=== PATIENT | female | born 1990 | race Caucasian/White ===

== ENCOUNTER → 2018-07-23 | Outpatient (REF) | payer OTHER | LOC: M SFHCLERA 10:40 | PROVIDERS: ATTEND Nurse Practitioner Family | DX: R53.81 Other malaise (principal) ==

== ENCOUNTER 2018-09-13 18:19 | Emergency (ER) | payer OTHER, SELFPAY ==
[~2018-09-13] VITALS: Ht 162.6 cm; Wt 84.1 kg
[2018-09-13] MEDS ORDERED: SULF1TAB93 PO (18:33)
[2018-09-13] MEDS ORDERED: BUPR1SUB35 PO (18:33)
[2018-09-13 19:36] LABS: BASO % 0.6 % (0.0-1.0); EOS # 0.2 10^3/uL (0.0-0.50); EOS % 2.8 % (0.0-3.0); HEMATOCRIT 41.3 % (36.0-47.0); LYMPH # 2.4 10^3/uL (1.5-6.5); LYMPH % 33.4 % (24.0-44.0); MEAN CORPUSCULAR HEMOGLOBIN 29.2 pg (27.0-33.0); MEAN CORPUSCULAR HGB CONC 33.9 g/dl (32.0-36.5); MEAN CORPUSCULAR VOLUME 86.2 fl (80.0-96.0); MONO # 0.5 10^3/uL (0.0-0.8); MONO % 6.3 % (0.0-5.0); NEUTROPHILS % 56.6 % (36.0-66.0); PLATELET COUNT, AUTOMATED 249 10^3/uL (150-450); RED BLOOD COUNT 4.79 10^6/uL (4.00-5.40); WHITE BLOOD COUNT 7.1 10^3/uL (4.0-10.0)
[2018-09-13 20:33] LABS: HCG, SERUM QUALITATIVE POSITIVE (NEGATIVE)
[2018-09-13 20:39] LABS: HCG, SERUM QUANTITATIVE 16 MIU/ML
[2018-09-13 21:51] VITALS: BP 138/78
== END 2018-09-13 21:52 | disposition home or self-care (01) ==
LOC: M ED 18:19
DX: Z32.01 Encounter for pregnancy test, result positive (principal); N93.9 Abnormal uterine and vaginal bleeding, unspecified; I10 Essential (primary) hypertension; N80.9 Endometriosis, unspecified; E28.2 Polycystic ovarian syndrome; M54.9 Dorsalgia, unspecified; N13.70 Vesicoureteral-reflux, unspecified; M51.9 Unspecified thoracic, thoracolumbar and lumbosacral intervertebral disc disorder; Z79.899 Other long term (current) drug therapy; Z88.1 Allergy status to other antibiotic agents; Z88.8 Allergy status to other drugs, medicaments and biological substances; F17.210 Nicotine dependence, cigarettes, uncomplicated

== ENCOUNTER → 2018-11-28 | Outpatient (CLI) | payer OTHER, SELFPAY ==
[~2018-11-28] MED LIST: BUPR1SUB35 PO; SULF1TAB93 PO
[2018-11-28 15:43] LABS: ALBUMIN 3.3 GM/DL (3.2-5.2); BILIRUBIN,DIRECT 0.1 MG/DL (0.0-0.2); BILIRUBIN,TOTAL 0.3 MG/DL (0.2-1.0); TOTAL PROTEIN 7.3 GM/DL (6.4-8.2)
[2018-12-01 14:07] LABS: HEPATITIS C QUANTITATION 753890 IU/mL (.)
== END ==
LOC: M LAB 14:06
PROVIDERS: ATTEND Obstetrics & Gynecology
DX: B19.20 Unspecified viral hepatitis C without hepatic coma (principal)

== ENCOUNTER 2019-01-22 15:30 | Outpatient (CLI) | payer OTHER, SELFPAY ==
[~2019-01-22] VITALS: Ht 162.6 cm; Wt 81.7 kg
[2019-01-22] MEDS ORDERED: PRENTAB9 PO (16:02)
[2019-01-22] MEDS ORDERED: MAPA500T2 PO (16:02)
[2019-01-22] MEDS ORDERED: BUPR8SUB SL (16:02)
[2019-01-22] MEDS ORDERED: TUMS500C PO (16:02)
[2019-01-22] MEDS ORDERED: TUMS750C5 PO (16:02)
[2019-01-22 16:08] VITALS: BP 115/59
[2019-01-22] MEDS ORDERED: LR 500 ML IV ONE (16:30)
[2019-01-22] MEDS ORDERED: ONDANSETRON 4MG/2ML VIAL (J2405) IV ONE (16:45)
[2019-01-22] MEDS ORDERED: LR 500 ML IV SCH (17:00)
[2019-01-22] MEDS ORDERED: LR 1,000 ML IV SCH (17:00)
[2019-01-22 17:13] LABS: APPEARANCE, URINE HAZY (CLEAR); BACTERIA, URINE AUTO NEGATIVE (NEGATIVE); BILIRUBIN, URINE AUTO NEGATIVE (NEGATIVE); BLOOD, URINE BLOOD NEGATIVE (NEGATIVE); COLOR, URINE AMBER (YELLOW); GLUCOSE, URINE (UA) AUTO NEGATIVE (NEGATIVE); KETONE, URINE AUTO 1+ mg/dL (NEGATIVE); LEUKOCYTE ESTERASE, URINE AUTO NEGATIVE (NEGATIVE); MUCUS, URINE SMALL (NEGATIVE); NITRITE, URINE AUTO NEGATIVE (NEGATIVE); PROTEIN, URINE AUTO NEGATIVE (NEGATIVE); RBC, URINE AUTO 2 /HPF (0-3); SPECIFIC GRAVITY URINE AUTO 1.024 (1.002-1.035); SQUAMOUS EPITHELIAL CELL UR AU 10 /HPF (0-6); WBC, URINE AUTO 1 /HPF (0-3)
[2019-01-22 17:17] LABS: ALBUMIN 2.8 GM/DL (3.2-5.2); ALT/SGPT 319 U/L (12-78); BILIRUBIN,TOTAL 0.4 MG/DL (0.2-1.0); BLOOD UREA NITROGEN 7 MG/DL (7-18); CALCIUM LEVEL 8.6 MG/DL (8.5-10.1); CARBON DIOXIDE LEVEL 22 MEQ/L (21-32); CHLORIDE LEVEL 107 MEQ/L (98-107); CREATININE FOR GFR 0.41 MG/DL (0.55-1.30); GLOMERULAR FILTRATION RATE > 60.0 (>60); GLUCOSE, FASTING 73 MG/DL (70-100); POTASSIUM SERUM 3.5 MEQ/L (3.5-5.1); SODIUM LEVEL 138 MEQ/L (136-145); TOTAL PROTEIN 6.6 GM/DL (6.4-8.2)
[2019-01-22] MEDS ORDERED: REGL10TA6 PO (18:08)
[2019-01-22 18:15] LABS: INR 1.04; PARTIAL THROMBOPLASTIN TIME 30.3 SECONDS (25.0-38.4); PROTHROMBIN TIME 13.3 SECONDS (11.8-14.0)
--- NOTE | 2019-01-22 20:23 | IPNPDOC ---
Text Note Date of Service The patient was seen on 01/22/19. NOTE OB Considerations: - Hep C - Followed by ID - Subutex usage - h/o section - prior back surgeries - BMI 30 - Asthma Mary is a 28yo at 22+2wks by 11wk US (DIANE [id number]) presents with 24hrs of nausea and vomiting. She reports that it started yesterday after ea ting. She notes that her room mate was sick recently but with different symptoms. She reports that she had n/v all night, but felt slightly better during the morning today. Then, this afternoon, she notes that she would vomit only with liquids and she was concerned also because her baby was not as active. She reports a fever of 102, for which she took Tylenol with resolution of fever. She reports history of duodenitis, gastritis, and hiatal hernia, as well as history of Lap Aditi, Kidney issues. VS: reviewed, normotensive, afebrile, nontachycardic GEN: WNWD, NAD CV: nontachycardic RESP: breathing normally ABD: Soft, Gravid, mildly TTP epigastric, mildly TTP right costovertebral tender ness EXT: no edema FHR: 140sbpm Limited bedside Ultrasound: single intrauterine , lots of movement noted, +FCA, grossly adequate fluid, posterior placenta A/P: SIUP at 22wks with n/v - labs notable for elevated AST/ALT which has been noted in the past due to Hep C. Likely viral gastroenteritis. She has follow up with ID in . Urine notable for elevated specific gravity likely due to dehydration. Do not suspect worsening Hep C or Pyelo. She was PO challenged and reports feeling much better after IVF and Zofran, desiring discharge. Reglan ordered for her due to Zofran PO made her more nausea. She was give strict return and PTL precautions and was discharged home. She to follow up in clinic as scheduled. DO BETSY Eaton Fishbone, I+O Robert MEYER, I+O Laboratory Tests 01/22/19 16:32 Calcium Level 8.6, Aspartate Amino Transf (AST/SGOT) 202 H, Alanine Aminotransferase (ALT/SGPT) 319 H, Alkaline Phosphatase 96, Total Bilirubin 0.4, Total Protein 6.6, Albumin 2.8 L Vital Signs Date Time Temp Pulse Resp B/P (MAP) Pulse Ox O2 Delivery O2 Flow Rate FiO2 01/22/19 16:08 97.8 86 16 115/59 (77) JAKE MARTINO DO Jan 22, 2019 19:03
== END 2019-01-22 18:28 | disposition home or self-care (01) ==
LOC: M LDO 15:30
PROVIDERS: ATTEND Obstetrics & Gynecology
DX: O36.8130 Decreased fetal movements, third trimester, not applicable or unspecified (principal); O99.283 Endocrine, nutritional and metabolic diseases complicating pregnancy, third trimester; E86.0 Dehydration; Z3A.37 37 weeks gestation of pregnancy
CPT/HCPCS: 36415; 76815; 80053; 81001; 85384; 85610; 85730; 87086; 96374; G0378; G0463; J2405

== ENCOUNTER 2019-02-06 14:34 | Outpatient (CLI) | payer OTHER, SELFPAY ==
[~2019-02-06] VITALS: Ht 162.6 cm; Wt 80.4 kg
[2019-02-06] VITALS (16 sets, daily range): BP systolic 118–206; BP diastolic 60–158
[~2019-02-06 14:34] MED LIST changes: -ZOFR4TAB16 PO
[2019-02-06] MEDS ORDERED: ZOFR4TAB16 PO (14:48)
[2019-02-06 15:37] LABS: HEMATOCRIT 32.9 % (36.0-47.0); HEMOGLOBIN 11.3 g/dl (12.0-15.5); MEAN CORPUSCULAR HEMOGLOBIN 30.1 pg (27.0-33.0); MEAN CORPUSCULAR HGB CONC 34.3 g/dl (32.0-36.5); MEAN CORPUSCULAR VOLUME 87.5 fl (80.0-96.0); PLATELET COUNT, AUTOMATED 263 10^3/uL (150-450); RED BLOOD COUNT 3.76 10^6/uL (4.00-5.40); WHITE BLOOD COUNT 10.5 10^3/uL (4.0-10.0)
[2019-02-06 16:05] LABS: ALBUMIN 2.9 GM/DL (3.2-5.2); ALT/SGPT 27 U/L (12-78); BILIRUBIN,TOTAL 0.3 MG/DL (0.2-1.0); BLOOD UREA NITROGEN 7 MG/DL (7-18); CALCIUM LEVEL 8.4 MG/DL (8.5-10.1); CARBON DIOXIDE LEVEL 21 MEQ/L (21-32); CHLORIDE LEVEL 108 MEQ/L (98-107); CREATININE FOR GFR 0.53 MG/DL (0.55-1.30); GLOMERULAR FILTRATION RATE > 60.0 (>60); GLUCOSE, FASTING 85 MG/DL (70-100); POTASSIUM SERUM 3.6 MEQ/L (3.5-5.1); SODIUM LEVEL 137 MEQ/L (136-145); TOTAL PROTEIN 7.3 GM/DL (6.4-8.2)
[2019-02-06 16:13] LABS: TOTAL PROTEIN,RANDOM URINE 36.7 MG/DL (0.0-12.0)
[2019-02-06] MEDS ORDERED: FAMOTIDINE 20 MG TAB PO ONE (16:30)
[2019-02-06] MEDS ORDERED: PROMETHAZINE 25 MG TAB PO ONE (16:30)
--- NOTE | 2019-02-06 17:36 | REP ---
Abdominal right upper quadrant ultrasound for right upper quadrant pain, question of hepatic hematoma. Additionally, the patient has a history of hepatitis C and is with a gestational age of 24 weeks. The the patient has a cholecystectomy. There is no intrahepatic or extrahepatic biliary duct dilatation. The common biliary duct measures 4.9 mm in diameter. The hepatic parenchyma is homogeneous. There is no hepatic hematoma or laceration. There are no hepatic masses. The visualized areas of the pancreas are unremarkable. The right kidney is normal size measuring 10.0 x 5.4 x 4.5 cm. There are no right renal calculi. There is no hydronephrosis. There are no right renal solid or cystic masses. There is no right upper quadrant free fluid. During the examination the heart rate was recorded to be 149 beats per minute. Impression: There is no hepatic hematoma. There is no hepatic mass. There is no right upper quadrant free fluid. Cholecystectomy. No right renal hydronephrosis. Electronically Signed by Donovan Hagen MD 02/06/2019 05:28 P
[2019-02-06] MEDS ORDERED: NORCO, ANEXSIA 5/325MG TABLET (HYDROcodone/ACETAMINOPHEN) PO ONE (18:30)
--- NOTE | 2019-02-06 20:21 | ECGEPIP ---
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
--- NOTE | 2019-02-06 20:55 | IPNPDOC ---
Text Note Date of Service The patient was seen on 02/06/19. NOTE I accepted care of this patient and co-managed with MAJ Salvador CNM OB Considerations: - Hep C - Followed by ID - Subutex usage - h/o section - prior back surgeries - BMI 30 - Asthma Mary is a 28yo at 25+3wks by 11wk US (DIANE [id number]) presents from clinic for evaluation of elevated BPs and N/V epigastric pain that has been present for 2 weeks. She was evaluated by MAJ Franco - seen note for more details. VS: reviewed GEN: WNWD, NAD CV: RRR no m/g/r RESP: CTAB ABD: Soft, Gravid, TTP epigastric, no peritoneal signs +NABS EXT: No edema, neg veena's A/P: SIUP at 25wks with the above complaint. No Pre Eclampsia symptoms, no labs abnormalities with normal Spot. Normal RUQ ultrasound. It was noted after several elevated heart rates on monitor with normal HR to palpation, manual blood pressures were performed and were found to be in the normotensive range. Unsure if automatic BPs/HR were accurate. An EKG was performed with no concerns for acute concerns, normal sinus rhythm, without acute ST-T wave changes. [place] 5/325mg x1 and Protonix with decrease in pain from 7 to 4/10 and no n/v during evaluation of patient. Recommend a MRCP to look at biliary system. Patient was unhappy that the evaluation was taking so long. I discussed that we wanted to make sure we were no life threatening or conditions that needed inpatient treatments or other consultations. She stated that she needed to leave, as her is watching her son and he needed to go to work. I discussed that I would be happy to call his command to let them know what was going on and that her spouse was need to watch her son. She declines this and would like to leave against medical advice. I counseled her on risk of worsening condition, maternal or , she verbalized understanding, signed AMA. She did eat prior to discharge. I will order the MRCP as outpatient and gave her strict return precautions. Phenergan and Omeprazole to be ordered to her outpatient pharmacy: [facility]. Recommend that she follow up in clinic in 1 weeks or sooner if symptoms worsen. Kenzie Martino DO VS,Robert, I+O VS, Robert, I+O Laboratory Tests 02/06/19 15:24 Red Blood Count 3.76 L, Mean Corpuscular Volume 87.5, Mean Corpuscular Hemoglobin 30.1, Mean Corpuscular Hemoglobin Concent 34.3, Red Cell Distribution Width 13.6, Calcium Level 8.4 L, Aspartate Amino Transf (AST/SGOT) 21, Alanine Aminotransferase (ALT/SGPT) 27, Alkaline Phosphatase 68, Total Bilirubin 0.3, Total Protein 7.3, Albumin 2.9 L Vital Signs Date Time Temp Pulse Resp B/P (MAP) Pulse Ox O2 Delivery O2 Flow Rate FiO2 02/06/19 18:40 66 16 126/78 (94) 100 02/06/19 18:00 98.4 KENZIE MARTINO DO Feb 06, 2019 20:55
[2019-02-06] MEDS ORDERED: PANTOPRAZOLE 40MG INJ (PROTONIX) (C9113) IV SCH (21:00)
[2019-04-24] MEDS ORDERED: XANA0.5T PO (14:00)
[2019-04-24] MEDS ORDERED: BUPR2SUB PO (14:00)
== END 2019-02-06 20:30 | disposition home or self-care (01) ==
LOC: M LDO 14:34
PROVIDERS: ATTEND Advanced Practice Midwife
DX: O26.892 Other specified pregnancy related conditions, second trimester (principal); R03.0 Elevated blood-pressure reading, without diagnosis of hypertension; O21.2 Late vomiting of pregnancy; R10.13 Epigastric pain; O98.412 Viral hepatitis complicating pregnancy, second trimester; B18.2 Chronic viral hepatitis C; Z3A.25 25 weeks gestation of pregnancy
CPT/HCPCS: 36415; 59025; 76705; 80053; 82570; 84156; 85027; 86704; 86706; 86708; 87522; 87902; 93005; C9113; G0378; G0463

== ENCOUNTER → 2019-02-06 | Outpatient (REF) | payer OTHER ==
[~2019-02-06] MED LIST changes: +BUPR8SUB SL; +MAPA500T2 PO; +PRENTAB9 PO; +REGL10TA6 PO; +TUMS500C PO; +TUMS750C5 PO; +ZOFR4TAB16 PO
[2019-02-06 18:40] LABS: ALT/SGPT 27 U/L (12-78); BILIRUBIN,DIRECT 0.1 MG/DL (0.0-0.2); BILIRUBIN,TOTAL 0.3 MG/DL (0.2-1.0)
[2019-02-08 09:28] LABS: HEPATITIS B SURFACE ANTIBODY NEGATIVE (POSITIVE)
== END ==
LOC: M LAB REF 16:59
PROVIDERS: ATTEND Internal Medicine Infectious Disease
DX: B18.2 Chronic viral hepatitis C (principal)

== ENCOUNTER → 2019-02-16 | Outpatient (CLI) | payer OTHER, SELFPAY ==
[~2019-02-16] MED LIST changes: +BUPR2SUB PO; +OMEP40CA97 PO; +PROM50TA4 PO; +PROT20TA11 PO; +XANA0.5T PO; +ZOFR4TAB16 PO
--- NOTE | 2019-02-17 10:34 | REP ---
MRCP: MRCP exam is accomplished utilizing multiple heavily T2-weighted sequences in the axial and coronal planes with MIP reconstruction images. Correlation made with ultrasound 02/06/2019. Patient has had a prior cholecystectomy. There is no evidence of intrahepatic or extrahepatic biliary diltation. Common bile duct has a maximum diameter of 4 mm. There is no evidence of choledocholithiasis. Pancreatic duct is normal in caliber. Visualized portions of liver, spleen, adrenals, pancreas, and kidneys are unremarkable. Gravid uterus is noted in the pelvis. IMPRESSION: Status post cholecystectomy. No biliary diltation or evidence of choledocholithiasis. Electronically Signed by Donovan Estes MD 02/20/2019 02:47 P
== END ==
LOC: M RAD 16:54
PROVIDERS: ATTEND Obstetrics & Gynecology
DX: O26.892 Other specified pregnancy related conditions, second trimester (principal); R10.11 Right upper quadrant pain; Z90.49 Acquired absence of other specified parts of digestive tract; Z3A.25 25 weeks gestation of pregnancy

== ENCOUNTER 2019-03-13 17:36 | Outpatient (CLI) | payer OTHER, SELFPAY ==
[~2019-03-13] VITALS: Ht 162.6 cm; Wt 81.5 kg
[~2019-03-13 17:36] MED LIST changes: -BUPR2SUB PO; -OMEP40CA97 PO; -PROM50TA4 PO; -PROT20TA11 PO; -XANA0.5T PO
[2019-03-13 17:54] VITALS: BP 148/96
[2019-03-13] MEDS ORDERED: METOCLOPRAMIDE 10 MG TAB PO ONE (18:15)
[2019-03-13] MEDS ORDERED: ACETAMINOPHEN 500 MG TAB PO ONE (18:15)
[2019-03-13 18:53] LABS: ALT/SGPT 33 U/L (12-78); BILIRUBIN,TOTAL 0.3 MG/DL (0.2-1.0); CREATININE FOR GFR 0.51 MG/DL (0.55-1.30); GLOMERULAR FILTRATION RATE > 60.0 (>60); LDH LACTATE DEHYDROGENASE 207 U/L (84-246); URIC ACID 2.5 MG/DL (2.6-6.0)
[2019-03-13 19:00] LABS: HEMATOCRIT 33.4 % (36.0-47.0); HEMOGLOBIN 11.3 g/dl (12.0-15.5); MEAN CORPUSCULAR HEMOGLOBIN 30.4 pg (27.0-33.0); MEAN CORPUSCULAR HGB CONC 33.8 g/dl (32.0-36.5); MEAN CORPUSCULAR VOLUME 89.8 fl (80.0-96.0); PLATELET COUNT, AUTOMATED 268 10^3/uL (150-450); RED BLOOD COUNT 3.72 10^6/uL (4.00-5.40); WHITE BLOOD COUNT 10.7 10^3/uL (4.0-10.0)
[2019-03-13 19:04] LABS: TOTAL PROTEIN,RANDOM URINE 16.5 MG/DL (0.0-12.0)
[2019-03-13 19:09] LABS: APPEARANCE, URINE CLEAR (CLEAR); BACTERIA, URINE AUTO NEGATIVE (NEGATIVE); BILIRUBIN, URINE AUTO NEGATIVE (NEGATIVE); BLOOD, URINE BLOOD NEGATIVE (NEGATIVE); COLOR, URINE YELLOW (YELLOW); GLUCOSE, URINE (UA) AUTO NEGATIVE (NEGATIVE); KETONE, URINE AUTO 1+ mg/dL (NEGATIVE); LEUKOCYTE ESTERASE, URINE AUTO NEGATIVE (NEGATIVE); MUCUS, URINE SMALL (NEGATIVE); NITRITE, URINE AUTO NEGATIVE (NEGATIVE); PROTEIN, URINE AUTO NEGATIVE (NEGATIVE); RBC, URINE AUTO 0 /HPF (0-3); SPECIFIC GRAVITY URINE AUTO 1.015 (1.002-1.035); SQUAMOUS EPITHELIAL CELL UR AU 1 /HPF (0-6); UROBILINOGEN, URINE AUTO 0.2 mg/dL (0.0-2.0); WBC, URINE AUTO 1 /HPF (0-3)
--- NOTE | 2019-03-13 20:08 | IPNPDOC ---
Text Note Date of Service The patient was seen on 03/13/19. NOTE patient is a 28 yo @30+3wks gestation presents to l&d with concern for pelvic pressure and intermittent lower abdominal cramping x 2 days. Patient reports she has been up on her feet busy for the last few days. She thinks she is drinking enough water. report she feels her abdomen tighten occasionally. denies n/v. has had YOO x 2 days. She tried tylenol yesterday and that did not help. YOO is mild and she is able to sleep. YOO back of head and behind her right eye. denies blurred vision. denies LOF/VB. +FM. Vitals: 148/96 NAD cta s w/r/r s1s2 s m/g/c abd: gravid, soft, nt le: no edema/erythema/tenderness speculum exam: white vaginal discharge. cervix visually closed CE: closed/long/high, posterior, medium fht: 135/mod almita/pos accel/no decel toco: uterine irritability wet prep: neg clue cells/trich omari: neg buds/hyphae Laboratory Tests 2 03/13/19 18:11: Urine Color YELLOW, Urine Appearance CLEAR, Urine pH 7.0, Urine Specific [place] 1.015, Urine Protein NEGATIVE, Urine Glucose (Auto)(UA) NEGATIVE, Urine Ketones (Auto) 1+H, Urine Blood NEGATIVE, Urine Nitrite NEGATIVE, Urine Bilirubin NEGATIVE, Urine Urobilinogen 0.2, Urine Leukocyte Esterase (Auto) NEGATIVE, Urine WBC (Auto) 1, Urine RBC (Auto) 0, Urine Hyaline Casts (Auto) 0, Urine Bacteria (Auto) NEGATIVE, Urine Squamous Epithelial Cells 1, Urine Mucus (Auto) SMALL, Urine Sperm (Auto) , Urine Random Creatinine 145.0, Urine Random Total Protein 16.5H 03/13/19 18:14: Nucleated Red Blood Cells % (auto) 0.0, Glomerular Filtration Rate > 60.0, Uric Acid 2.5L, Total Bilirubin 0.3, Aspartate Amino Transf (AST/SGOT) 32, Alanine Aminotransferase (ALT/SGPT) 33, Lactate Dehydrogenase 207 Laboratory Tests Test 03/13/19 18:14 Total Bilirubin 0.3 MG/DL (0.2-1.0) Laboratory Tests 03/13/19 18:14 a/p Patient @ 30+3wks, with irregular contractions, cervix closed, not in labor at this time. YOO improves with acetaminophen and reglan. patient with GHTN, no e/o pre-eclampsia. discussed return precautions. f/u with regularly scheduled appointment. back sooner prn. VS,Fishbone, I+O VS, Fishbone, I+O Laboratory Tests 03/13/19 18:14 Vital Signs Date Time Temp Pulse Resp B/P (MAP) Pulse Ox O2 Delivery O2 Flow Rate FiO2 03/13/19 17:54 97.5 91 16 148/96 (113) PATIENCE WHITE DO Mar 13, 2019 19:15
[2019-04-24] MEDS ORDERED: XANA0.5T PO (14:00)
[2019-04-24] MEDS ORDERED: BUPR2SUB PO (14:00)
== END 2019-03-13 20:10 | disposition home or self-care (01) ==
LOC: M LDO 17:36
PROVIDERS: ATTEND Obstetrics & Gynecology
DX: O13.3 Gestational [pregnancy-induced] hypertension without significant proteinuria, third trimester (principal); Z3A.30 30 weeks gestation of pregnancy
CPT/HCPCS: 36415; 59025; 81001; 82247; 82565; 82570; 83615; 84156; 84450; 84460; 84550; 85027; 87086; G0378; G0463

== ENCOUNTER 2019-03-31 10:13 | Outpatient (CLI) | payer OTHER, SELFPAY ==
[~2019-03-31] VITALS: Ht 162.6 cm; Wt 79.0 kg
[2019-03-31] MEDS ORDERED: PROT20TA11 PO (10:38)
[2019-03-31] MEDS ORDERED: PROM50TA4 PO (10:42)
[2019-03-31] MEDS ORDERED: OMEP40CA97 PO (10:42)
[2019-03-31 10:43] VITALS: BP 124/76
[2019-03-31 11:10] VITALS: BP 222/135
[2019-03-31 11:13] LABS: HEMATOCRIT 33.8 % (36.0-47.0); HEMOGLOBIN 11.1 g/dl (12.0-15.5); MEAN CORPUSCULAR HEMOGLOBIN 29.5 pg (27.0-33.0); MEAN CORPUSCULAR HGB CONC 32.8 g/dl (32.0-36.5); MEAN CORPUSCULAR VOLUME 89.9 fl (80.0-96.0); PLATELET COUNT, AUTOMATED 235 10^3/uL (150-450); RED BLOOD COUNT 3.76 10^6/uL (4.00-5.40)
[2019-03-31 11:14] VITALS: BP 110/62
[2019-03-31 11:18] VITALS: BP 179/112
[2019-03-31 11:19] VITALS: BP 110/58
[2019-03-31 11:23] VITALS: BP 110/60
[2019-03-31 11:35] LABS: ALT/SGPT 20 U/L (12-78); BILIRUBIN,TOTAL 0.3 MG/DL (0.2-1.0); CREATININE FOR GFR 0.45 MG/DL (0.55-1.30); GLOMERULAR FILTRATION RATE > 60.0 (>60); LDH LACTATE DEHYDROGENASE 160 U/L (84-246); URIC ACID 2.5 MG/DL (2.6-6.0)
[2019-03-31 12:25] LABS: AMPHETAMINES URINE REFLEX NEGATIVE (NEGATIVE); BARBITURATES URINE REFLEX NEGATIVE (NEGATIVE); BENZODIAZEPINES URINE REFLEX NEGATIVE (NEGATIVE); COCAINE METABOLITE URINE REFLE NEGATIVE (NEGATIVE); METHADONE URINE REFLEX NEGATIVE (NEGATIVE); OPIATES URINE REFLEX NEGATIVE (NEGATIVE); PHENCYCLIDINE URINE REFLEX NEGATIVE (NEGATIVE)
[2019-03-31 12:29] LABS: CANNABINOIDS URINE REFLEX PENDING CONFIRMATION (NEGATIVE)
--- NOTE | 2019-03-31 15:22 | IPNPDOC ---
Text Note Date of Service The patient was seen on 03/31/19. NOTE Patient is a 28 yo @33wks gestation with GHTN presents to L&D for BP m onitoring. patient denies YOO/N/V/change in vision. denies cramping/vb. +FM. vitals: automatic BP in severe range while manual BP all normal NAD: cta s w/r/r s1s2 s m/g/c abd: gravid, soft,nt LE: no edema/erythema/tenderness fht: 145/mod almita/pos accel/no decel toco: quiet labs reviewed normal urine spot protein: 0.1 a/p patient @ 33 wks gestation with GHTN, normal (manual) BP today. no e/o pre- eclampsia. patient given return precautions. 24hr urine protein ordered and patient will bring collection back on wednesday. patient has f/u appointment in clinic next week. DO Bonita VS,Fishbone, I+O VS, Fishbone, I+O Laboratory Tests 03/31/19 11:03 Vital Signs Date Time Temp Pulse Resp B/P (MAP) Pulse Ox O2 Delivery O2 Flow Rate FiO2 03/31/19 11:23 110/60 (77) 03/31/19 11:18 104 03/31/19 10:43 98.8 18 VS,Fishbone, I+O VS, Fishbone, I+O Laboratory Tests 03/31/19 11:03 Vital Signs Date Time Temp Pulse Resp B/P (MAP) Pulse Ox O2 Delivery O2 Flow Rate FiO2 03/31/19 11:23 110/60 (77) 03/31/19 11:18 104 03/31/19 10:43 98.8 18 PATIENCE WHITE DO Mar 31, 2019 15:22
[2019-04-07 00:07] LABS: Cannabinoid Positive (.); GC Carboxy THC 250 ng/mL (Cutoff=10)
== END 2019-03-31 12:30 | disposition home or self-care (01) ==
LOC: M LDO 10:13
PROVIDERS: ATTEND Obstetrics & Gynecology
DX: O26.893 Other specified pregnancy related conditions, third trimester (principal); Z3A.33 33 weeks gestation of pregnancy
CPT/HCPCS: 36415; 59025; 80307; 82247; 82565; 82570; 83615; 84156; 84450; 84460; 84550; 85027; G0378; G0463; G0480

== ENCOUNTER → 2019-04-03 | Outpatient (REF) | payer OTHER ==
[~2019-04-03] MED LIST changes: +OMEP40CA97 PO; +PROM50TA4 PO; +PROT20TA11 PO
[2019-04-03 10:39] LABS: URINE TOTAL PROTEIN 23.1 MG/DL (0-12)
[2019-04-03 12:57] LABS: TOTAL PROTEIN 24 HOUR URINE 103.9 MG/24HR (50-150)
== END ==
LOC: M LAB REF 10:01
PROVIDERS: ATTEND Obstetrics & Gynecology
DX: O16.3 Unspecified maternal hypertension, third trimester (principal)

== ENCOUNTER 2019-04-14 22:45 | Outpatient (CLI) | payer OTHER ==
[~2019-04-14] VITALS: Ht 162.6 cm; Wt 79.8 kg
[2019-04-14 23:09] VITALS: BP 134/83
[2019-04-14] MEDS ORDERED: LR 1,000 ML IV ONE (23:45)
[2019-04-14] MEDS ORDERED: LR 1,000 ML IV SCH (23:45)
[2019-04-15 00:23] LABS: AMPHETAMINES URINE REFLEX NEGATIVE (NEGATIVE); BARBITURATES URINE REFLEX NEGATIVE (NEGATIVE); BENZODIAZEPINES URINE REFLEX NEGATIVE (NEGATIVE); COCAINE METABOLITE URINE REFLE NEGATIVE (NEGATIVE); METHADONE URINE REFLEX NEGATIVE (NEGATIVE); OPIATES URINE REFLEX NEGATIVE (NEGATIVE); PHENCYCLIDINE URINE REFLEX NEGATIVE (NEGATIVE)
[2019-04-15 05:09] LABS: CANNABINOIDS URINE REFLEX PENDING CONFIRMATION (NEGATIVE)
--- NOTE | 2019-04-15 08:53 | HPE ---
DATE OF ADMISSION: 04/14/2019 DATE OF SERVICE: 04/15/2019 This lady is a 28-year-old 3, para 1, abortio 1, last menstrual period (LMP) 08/12/2018, estimated date of confinement (EDC) 05/19/2019 at 35 and 2 weeks of gestation with a history of contractions. First, they were every 3 minutes. Then they were 11 minutes, and she had nausea and vomiting and then a fever. She called the emergency line three times over the last 24 hours but never came for evaluation. She called 04/14/2019 at noon. She called at 1634 p.m. and 1143 p.m. When she arrived, she had complains of nausea, vomiting, and a temperature. However, she was afebrile here. She said she had taken some Tylenol before coming, and her contractions were about 4 minutes apart. Her past history is that she had a spontaneous in 2017, a section at 39 and 5, 6 pounds 1 ounce. It was elective because of chronic back pain. She is booked for an elective repeat with Dr. White, although she is vacillating on trying a trial of labor after (TOLAC), and she says if there is a lot of back pain, she will request a section, and she is uncertain as to the mode of delivery at the present time. Risk factors, her body mass index (BMI) is 30, previous section, back injury with fusion of L1. She was a previous opioid addict, on buprenorphine. She is positive for cannabis. She has tobacco use, anxiety and depression, and she is hepatitis C positive. Laboratories are A+, HIV negative, hepatitis negative, rapid plasma reagin (RPR) negative, rubella immune, varicella immune. Pap normal. Urine negative. Gonorrhea and chlamydia negative. 1-hour glucose was 111. That was the early. She did not do her 28-week glucose tolerance test (GTT), and she is hepatitis C positive. Blood pressure today 134/83, respirations 16, pulse 108, temperature is 98.1. Urine is 1.015, pH 7, and 3+ for ketones. Category one strips. We do have a patient with significant dehydration. Our plan of management is to IV hydrate and eliminate the ketones, at which time the uterine irritability should resolve. The patient had two bags of intravenous (IV) fluid. Was feeling much better, although she still had positive ketones. We wanted to clear the ketones, however, the patient decided she wanted to go home and sign herself out as against medical advice (AMA). After counseling by the nurses regarding risk factors in signing oneself out as AMA, the patient adamantly left without discharge instructions. She does have a followup appointment Dr. White in 72 hours.
[2019-04-21 00:07] LABS: Cannabinoid Positive (.); GC Carboxy THC 40 ng/mL (Cutoff=10)
[2019-04-24] MEDS ORDERED: XANA0.5T PO (14:00)
[2019-04-24] MEDS ORDERED: BUPR2SUB PO (14:00)
== END 2019-04-15 02:35 | disposition left against medical advice (07) ==
LOC: M LDO 22:45
PROVIDERS: ATTEND Obstetrics & Gynecology
DX: O62.2 Other uterine inertia (principal); O21.2 Late vomiting of pregnancy; O99.89 Other specified diseases and conditions complicating pregnancy, childbirth and the puerperium; O99.323 Drug use complicating pregnancy, third trimester; F12.90 Cannabis use, unspecified, uncomplicated; O99.333 Smoking (tobacco) complicating pregnancy, third trimester; F17.210 Nicotine dependence, cigarettes, uncomplicated; O99.283 Endocrine, nutritional and metabolic diseases complicating pregnancy, third trimester; E86.0 Dehydration; O98.413 Viral hepatitis complicating pregnancy, third trimester; Z87.898 Personal history of other specified conditions; Z79.891 Long term (current) use of opiate analgesic; Z3A.35 35 weeks gestation of pregnancy; Z53.29 Procedure and treatment not carried out because of patient's decision for other reasons
CPT/HCPCS: 59025; 80307; 96360; G0378; G0463; G0480

== ENCOUNTER → 2019-05-13 | Outpatient (CLI) | payer OTHER ==
[~2019-05-13] MED LIST changes: +BUPR2SUB PO; +XANA0.5T PO
--- NOTE | 2019-05-13 18:02 | REP ---
Clinical: Chest pain . Comparison: None . Technique: PA and lateral. Findings: The mediastinum and cardiac silhouette are normal. The lung canales are clear and without acute consolidation, effusion, or pneumothorax. The skeletal structures are intact and normal. Impression: 1. No acute cardiopulmonary process. Electronically Signed by Jonathon Daley MD 05/13/2019 05:53 P
== END ==
LOC: M LRY 17:38
PROVIDERS: ATTEND Nurse Practitioner Family
DX: R06.2 Wheezing (principal)

== ENCOUNTER 2019-07-19 16:27 | Emergency (ER) | payer OTHER ==
[~2019-07-19] VITALS: Ht 162.6 cm; Wt 74.8 kg
[2019-07-19] MEDS ORDERED: LEXA1TAB PO (16:39)
[2019-07-19 17:13] LABS: BASO % 0.5 % (0.0-1.0); EOS # 0.1 10^3/uL (0.0-0.5); EOS % 1.5 % (0.0-3.0); HEMOGLOBIN 13.6 g/dl (12.0-15.5); LYMPH # 2.5 10^3/uL (1.5-5.0); LYMPH % 32.5 % (24.0-44.0); MEAN CORPUSCULAR HEMOGLOBIN 27.8 pg (27.0-33.0); MEAN CORPUSCULAR HGB CONC 32.4 g/dl (32.0-36.5); MEAN CORPUSCULAR VOLUME 85.7 fl (80.0-96.0); MONO # 0.5 10^3/uL (0.0-0.8); MONO % 5.9 % (0.0-5.0); NEUTROPHILS # 4.6 10^3/uL (1.5-8.5); NEUTROPHILS % 59.3 % (36.0-66.0); PLATELET COUNT, AUTOMATED 339 10^3/uL (150-450); WHITE BLOOD COUNT 7.8 10^3/uL (4.0-10.0)
[2019-07-19 17:35] LABS: BLOOD UREA NITROGEN 6 MG/DL (7-18); CALCIUM LEVEL 9.2 MG/DL (8.5-10.1); CARBON DIOXIDE LEVEL 28 MEQ/L (21-32); CHLORIDE LEVEL 105 MEQ/L (98-107); CREATININE FOR GFR 0.63 MG/DL (0.55-1.30); GLOMERULAR FILTRATION RATE > 60.0 (>60); GLUCOSE, FASTING 92 MG/DL (70-100); HCG, SERUM QUANTITATIVE < 1.0 MIU/ML; SODIUM LEVEL 138 MEQ/L (136-145)
[2019-07-19] MEDS ORDERED: ACETAMINOPHEN 325 MG TAB PO ONE (18:15)
[2019-07-19 18:27] VITALS: BP 117/68
== END 2019-07-19 18:52 | disposition home or self-care (01) ==
LOC: M ED 16:27
DX: N92.0 Excessive and frequent menstruation with regular cycle (principal); I10 Essential (primary) hypertension; J45.909 Unspecified asthma, uncomplicated; Z88.1 Allergy status to other antibiotic agents; Z88.5 Allergy status to narcotic agent; Z88.6 Allergy status to analgesic agent; Z88.8 Allergy status to other drugs, medicaments and biological substances; Z79.899 Other long term (current) drug therapy

== ENCOUNTER 2019-10-18 12:14 | Emergency (ER) | payer OTHER ==
[~2019-10-18] VITALS: Ht 162.6 cm; Wt 70.5 kg
[~2019-10-18 12:14] MED LIST changes: +LEXA1TAB PO
[2019-10-18] MEDS ORDERED: PREN29TA4 PO (12:21)
[2019-10-18 13:16] LABS: BASO % 0.3 % (0.0-1.0); EOS # 0.1 10^3/uL (0.0-0.5); EOS % 1.6 % (0.0-3.0); HEMATOCRIT 39.5 % (36.0-47.0); HEMOGLOBIN 13.2 g/dl (12.0-15.5); LYMPH # 1.6 10^3/uL (1.5-5.0); LYMPH % 23.1 % (24.0-44.0); MEAN CORPUSCULAR HEMOGLOBIN 28.4 pg (27.0-33.0); MEAN CORPUSCULAR HGB CONC 33.4 g/dl (32.0-36.5); MEAN CORPUSCULAR VOLUME 85.1 fl (80.0-96.0); MONO # 0.4 10^3/uL (0.0-0.8); MONO % 5.8 % (0.0-5.0); NEUTROPHILS # 4.8 10^3/uL (1.5-8.5); NEUTROPHILS % 69.1 % (36.0-66.0); PLATELET COUNT, AUTOMATED 234 10^3/uL (150-450); RED BLOOD COUNT 4.64 10^6/uL (4.00-5.40); WHITE BLOOD COUNT 6.9 10^3/uL (4.0-10.0)
[2019-10-18 13:22] LABS: APPEARANCE, URINE HAZY (CLEAR); BACTERIA, URINE AUTO NEGATIVE (NEGATIVE); BILIRUBIN, URINE AUTO NEGATIVE (NEGATIVE); BLOOD, URINE BLOOD NEGATIVE (NEGATIVE); COLOR, URINE YELLOW (YELLOW); GLUCOSE, URINE (UA) AUTO NEGATIVE (NEGATIVE); KETONE, URINE AUTO NEGATIVE (NEGATIVE); LEUKOCYTE ESTERASE, URINE AUTO NEGATIVE (NEGATIVE); NITRITE, URINE AUTO NEGATIVE (NEGATIVE); PROTEIN, URINE AUTO NEGATIVE (NEGATIVE); RBC, URINE AUTO 1 /HPF (0-3); SPECIFIC GRAVITY URINE AUTO 1.021 (1.002-1.035); SQUAMOUS EPITHELIAL CELL UR AU 1 /HPF (0-6); UROBILINOGEN, URINE AUTO 0.2 mg/dL (0.0-2.0); WBC, URINE AUTO 0 /HPF (0-3)
[2019-10-18 13:56] LABS: ALBUMIN 3.5 GM/DL (3.2-5.2); ALT/SGPT 25 U/L (12-78); BILIRUBIN,DIRECT < 0.1 MG/DL (0.0-0.2); BILIRUBIN,TOTAL 0.3 MG/DL (0.2-1.0); BLOOD UREA NITROGEN 8 MG/DL (7-18); CALCIUM LEVEL 8.6 MG/DL (8.5-10.1); CARBON DIOXIDE LEVEL 22 MEQ/L (21-32); CHLORIDE LEVEL 106 MEQ/L (98-107); GLOMERULAR FILTRATION RATE > 60.0 (>60); GLUCOSE, FASTING 85 MG/DL (70-100); HCG, SERUM QUANTITATIVE 34333 MIU/ML; LIPASE 96 U/L (73-393); POTASSIUM SERUM 3.9 MEQ/L (3.5-5.1); SODIUM LEVEL 137 MEQ/L (136-145); TOTAL PROTEIN 7.8 GM/DL (6.4-8.2)
--- NOTE | 2019-10-18 15:24 | REP ---
FIRST TRIMESTER ULTRASOUND: Real-time sonographic evaluation of gravid uterus performed. There is a single living intrauterine gestation. The estimated gestational age is 12 weeks 3 days, based on a crown-rump length of 58 mm. EDC 04/28/2020. heart rate 149 beats per minute. There is no subchorionic hemorrhage. Placenta is anterior with no previa. There appears to be a corpus luteum of the left ovary, 1.4 cm in maximum diameter. There is no ovarian torsion bilaterally. Electronically Signed by Donovan Estes MD 10/19/2019 07:14 P
--- NOTE | 2019-10-18 15:30 | REP ---
RIGHT LOWER QUADRANT ULTRASOUND: Real-time sonographic evaluation of the right lower quadrant performed. The appendix could not be visualized. There is no pain or tenderness in that region with transducer pressure. No free fluid or fluid collection is seen. There is peristalsis of small bowel in this region. IMPRESSION: Appendix could not be visualized. No free fluid or fluid collection. Electronically Signed by Donovan Estes MD 10/19/2019 07:14 P
[2019-10-18 15:35] VITALS: BP 117/57
== END 2019-10-18 15:38 | disposition home or self-care (01) ==
LOC: M ED 12:14
DX: O26.891 Other specified pregnancy related conditions, first trimester (principal); R10.9 Unspecified abdominal pain; O21.0 Mild hyperemesis gravidarum; Z87.42 Personal history of other diseases of the female genital tract; O99.331 Smoking (tobacco) complicating pregnancy, first trimester; Z79.899 Other long term (current) drug therapy; Z88.5 Allergy status to narcotic agent; Z88.8 Allergy status to other drugs, medicaments and biological substances; Z3A.12 12 weeks gestation of pregnancy

== ENCOUNTER 2019-11-03 | Emergency (ER) | payer OTHER ==
[~2019-11-03] VITALS: Ht 162.6 cm; Wt 81.0 kg
[~2019-11-03] MED LIST changes: +PREN29TA4 PO
[2019-11-03 00:01] VITALS: BP 118/91
[2019-11-03] MEDS ORDERED: LIDOCAINE W/EPINEPHRINE 1% 20ML VIAL SC ONE (02:00)
== END 2019-11-03 02:46 | disposition left against medical advice (07) ==
LOC: M ED
DX: Z53.21 Procedure and treatment not carried out due to patient leaving prior to being seen by health care provider (principal)

== ENCOUNTER 2020-02-28 08:29 | Outpatient (CLI) | payer OTHER ==
[~2020-02-28] VITALS: Ht 162.6 cm; Wt 89.2 kg
[2020-02-28 08:44] VITALS: BP 114/58
[2020-02-28] MEDS ORDERED: FERR325T3 PO (09:04)
[2020-02-28] MEDS ORDERED: MAPA500T2 PO (09:04)
[2020-02-28] MEDS ORDERED: VITA100T59 PO (09:05)
[2020-02-28 10:17] VITALS: BP 97/54
--- NOTE | 2020-02-28 10:48 | REPVR ---
PROCEDURE INFORMATION: Exam: US , Limited Exam date and time: 02/28/2020 10:14 AM Age: 29 years old Clinical indication: Other: Vaginal bleeding; ; Additional info: Vaginal bleeding, R/O abruption, adams, and bpp TECHNIQUE: Imaging protocol: Real-time ultrasound of the maternal uterus with image documentation. Exam focused on the clinical indication. COMPARISON: Pelvis, limited US 10/18/2019 2:28 PM FINDINGS: Gestation: Single living intrauterine . heart rate: heart rate 133 bpm. Presentation: Cephalic position. Placenta: Anterior placenta. Grade 2. No previa. No abruption. Amniotic fluid: Normal amniotic fluid. ADAMS 12 cm. Other findings: Normal cord Doppler. S/D ratio 2.77. RI 0.64. IMPRESSION: 1. Single living intrauterine . 2. Anterior grade 2 placenta. No previa. No abruption. 3. Biophysical profile reported below. PROCEDURE INFORMATION: Exam: US Biophysical Profile Without Non-Stress Test Exam date and time: 02/28/2020 10:14 AM Age: 29 years old Clinical indication: Other: Vaginal bleeding; ; Additional info: Vaginal bleeding, R/O abruption, adams, and bpp TECHNIQUE: Imaging protocol: US biophysical profile without non-stress testing. COMPARISON: Pelvis, limited US 10/18/2019 2:28 PM FINDINGS: BIOPHYSICAL PROFILE: Breathin/2 Gross body movements: 2/2 tone: 2/2 Qualitative amniotic fluid: 2/2 Biophysical Profile Score: 8/8 IMPRESSION: Biophysical profile score is 8 out of 8. Electronically signed by: Jonathon Levin On 02/28/2020 10:48:35 AM
[2020-02-28 10:59] VITALS: BP 104/56
--- NOTE | 2020-02-28 11:14 | IPNPDOC ---
Obstetrical Progress Note Date of Service Feb 28, 2020 Subjective 29 y/o at 33w0d with DIANE of 04/17/2020 presents to L&D with complaints of bright red bleeding since waking this morning at 0800. She reports that her she noticed bright red blood on her pantyliner and when she presented to L&D she had on a pad with dark colored old blood that was about 3 quarter size. She denies any recent intercourse. She denies any abdominal trauma, fall, cont ractions, leaking of fluid, and reports positive movement. Objective Vital Signs Date Time Temp Pulse Resp B/P (MAP) Pulse Ox O2 Delivery O2 Flow Rate FiO2 02/28/20 08:44 98.4 88 18 114/58 (76) Sterile speculum exam with no blood and no active bleeding noted from the vaginal vault or coming from the cervix. Cervix appears closed by speculum exam. Assessment Heart Rate (FHR): 135 Variability: Moderate Accelerations: Present Decelerations: None Heart Rate Tracing: Category I Tocometer Contractions: No Assessment and Plan Age: 29 : 4 Term: 2 Pre-term: 0 Abortions: 1 Livin EGA at Admission: 33 (+0) Weeks & Days 33w0d Status: Reassuring Anticipate: Other (Discharge to home, certified not in labor) Additional Comments Recommended to keep appointment in the clinic today at 1240. Reviewed normal and reassuring US results with patient. Continue to hydrate well with 3-4 liters of fluid Discussed labor precautions. Return to clinic or to L&D if symptoms persist or worsen. MADHURI PARSONS CNM Feb 28, 2020 11:01
== END 2020-02-28 11:10 | disposition home or self-care (01) ==
LOC: M LDO 08:29
PROVIDERS: ATTEND Registered Nurse Maternal Newborn
DX: O26.853 Spotting complicating pregnancy, third trimester (principal); Z3A.33 33 weeks gestation of pregnancy
CPT/HCPCS: 59025; 76815; 76819; 76820; G0378; G0463

== ENCOUNTER → 2020-12-17 | Outpatient (CLI) | payer OTHER ==
[~2020-12-17] MED LIST changes: +ACET-683 PO; +BACTDSTA PO; +FERR325T3 PO; +IBUP80TA PO; +OMEP40CA4 PO; -OMEP40CA97 PO; +PROZ20CA11 PO; +SUBO8MIS SL; -SULF1TAB93 PO; +VITA100T59 PO
== END ==
LOC: M RAD 11:23
PROVIDERS: ATTEND Obstetrics & Gynecology
DX: Z36.89 Encounter for other specified antenatal screening (principal); Z3A.21 21 weeks gestation of pregnancy

== ENCOUNTER 2021-02-07 10:05 | Inpatient (IN) | payer OTHER ==
[2021-02-07] VITALS (8 sets, daily range): BP systolic 92–125; BP diastolic 51–65
[~2021-02-07] VITALS: Ht 162.6 cm; Wt 88.1 kg
[~2021-02-07 10:05] MED LIST changes: -ACET-683 PO; -IBUP80TA PO; -PROZ20CA11 PO; -SUBO8MIS SL
[2021-02-07] MEDS ORDERED: ACETAMINOPHEN 500 MG TAB PO ONE (10:35)
[2021-02-07] MEDS ORDERED: PROZ20CA11 PO (10:46)
[2021-02-07] MEDS ORDERED: SUBO8MIS SL (10:46)
[2021-02-07] MEDS ORDERED: LACTATED RINGER'S 1000 ML IV STA (11:05)
[2021-02-07 11:53] LABS: AMORPHOUS SEDIMENT SMALL (NEGATIVE); APPEARANCE, URINE HAZY (CLEAR); BACTERIA, URINE AUTO NEGATIVE (NEGATIVE); BILIRUBIN, URINE AUTO NEGATIVE (NEGATIVE); BLOOD, URINE BLOOD 3+ (NEGATIVE); COLOR, URINE AMBER (YELLOW); GLUCOSE, URINE (UA) AUTO NEGATIVE (NEGATIVE); KETONE, URINE AUTO TRACE mg/dL (NEGATIVE); LEUKOCYTE ESTERASE, URINE AUTO NEGATIVE (NEGATIVE); MUCUS, URINE SMALL (NEGATIVE); NITRITE, URINE AUTO NEGATIVE (NEGATIVE); PROTEIN, URINE AUTO 2+ mg/dL (NEGATIVE); RBC, URINE AUTO 20 /HPF (0-3); SPECIFIC GRAVITY URINE AUTO 1.021 (1.002-1.035); SQUAMOUS EPITHELIAL CELL UR AU 4 /HPF (0-6); WBC, URINE AUTO 5 /HPF (0-3)
[2021-02-07 12:06] LABS: HEMATOCRIT 31.4 % (36.0-47.0); MEAN CORPUSCULAR HEMOGLOBIN 27.2 pg (27.0-33.0); MEAN CORPUSCULAR HGB CONC 31.8 g/dl (32.0-36.5); MEAN CORPUSCULAR VOLUME 85.3 fl (80.0-96.0); PLATELET COUNT, AUTOMATED 311 10^3/uL (150-450); RED BLOOD COUNT 3.68 10^6/uL (4.00-5.40); WHITE BLOOD COUNT 8.9 10^3/uL (4.0-10.0)
[2021-02-07 12:12] LABS: AMPHETAMINES URINE REFLEX NEGATIVE (NEGATIVE); BARBITURATES URINE REFLEX NEGATIVE (NEGATIVE); BENZODIAZEPINES URINE REFLEX NEGATIVE (NEGATIVE); COCAINE METABOLITE URINE REFLE NEGATIVE (NEGATIVE); METHADONE URINE REFLEX NEGATIVE (NEGATIVE); OPIATES URINE REFLEX NEGATIVE (NEGATIVE); PHENCYCLIDINE URINE REFLEX NEGATIVE (NEGATIVE)
[2021-02-07 12:17] LABS: INR 0.96; PROTHROMBIN TIME 13.1 SECONDS (12.7-14.5)
[2021-02-07 12:18] LABS: PARTIAL THROMBOPLASTIN TIME 28.9 SECONDS (25.9-37.0)
[2021-02-07] MEDS ORDERED: OXYTOCIN DRIP 30 UNITS in IV 1 EA IV PRN (12:20)
[2021-02-07] MEDS ORDERED: LR 1,000 ML IV SCH ×2 (12:20→13:55)
[2021-02-07] MEDS ORDERED: METHYLERGONOVINE MALEATE 0.2 MG/ML VIAL (J2210) IM PRN (12:20)
[2021-02-07] MEDS ORDERED: BICITRA 30ML SOLN UDC PO ONE (12:20)
[2021-02-07] MEDS ORDERED: TRANEXAMIC ACID INJection 1,000 MG in NS 100 ML IV PRN (12:20)
[2021-02-07] MEDS ORDERED: CLINDAMYCIN 900 MG in IV 1 EA IV ONE ×2 (12:25→12:45)
[2021-02-07] MEDS ORDERED: SUCCINYLCHOLINE 100 MG/5 ML SYRINGE (J0330) ONE (12:48)
[2021-02-07] MEDS ORDERED: MIDAZOLAM INJ 2MG/2ML VIAL (J2250 PER 1MG) ONE (12:48)
[2021-02-07] MEDS ORDERED: LIDOCAINE 2% 100MG/5ML SDV (FOR ANES.) ONE (12:48)
[2021-02-07] MEDS ORDERED: fentaNYL 100 MCG/2 ML INJECTION (J3010) ONE (12:48)
[2021-02-07] MEDS ORDERED: ACETAMINOPHEN 1000MG 100ML IV BTL (OFIRMEV) (J0131 PER 10MG) ONE (12:48)
[2021-02-07] MEDS ORDERED: propofoL 200 MG/20 ML VIAL ONE (12:48)
[2021-02-07] MEDS ORDERED: OXYTOCIN INJ 10 UNITS/ML VIAL (J2590) ONE (12:52)
[2021-02-07] MEDS ORDERED: KETOROLAC 60MG 2ML VIAL ONE (12:54)
[2021-02-07 12:58] LABS: CANNABINOIDS URINE REFLEX PENDING CONFIRMATION (NEGATIVE)
[2021-02-07] MEDS ORDERED: GENTAMICIN 400 MG in D5W 100 ML IV ONE ×2 (13:00→14:05)
[2021-02-07] MEDS ORDERED: BETAMETHASONE SOLUSPAN 6MG/ML 5ML VIAL (J0702 PER 3MG) IM SCH (13:00)
[2021-02-07] MEDS ORDERED: OXYTOCIN 30 UNITS IN 0.9% NaCl 500ML IV BAG (J2590) ONE ×2 (13:02→13:56)
[2021-02-07] MEDS ORDERED: PHENYLephrine 500MCG 5ML (100MCG/ML) SYRINGE ONE (13:02)
[2021-02-07 13:09] LABS: CORD GAS ABE V -1.5; CORD GAS HCO3 V 24.3 MEQ/L; CORD GAS O2 SAT V 89.9 %; CORD GAS PCO2 V 44.5 mmHg; CORD GAS PH V 7.355 UNITS; CORD GAS PO2 V 43.5 mmHg; CORD GAS SBC V 23.1 MEQ/L; CORD GAS TCO2 V 25.7 MEQ/L
[2021-02-07 13:10] LABS: CORD GAS ABE A -1.5; CORD GAS HCO3 A 26.4 MEQ/L; CORD GAS O2 SAT A 51.8 %; CORD GAS PCO2 A 57.2 mmHg; CORD GAS PH A 7.282 UNITS; CORD GAS PO2 A 22.5 mmHg; CORD GAS TCO2 A 28.2 MEQ/L
--- NOTE | 2021-02-07 13:12 | REP ---
INDICATION: NO COUNT STAT C/S. COMPARISON: None. FINDINGS: Only the lower abdomen and pelvis was obtained. No abnormal radiopaque densities are identified. IMPRESSION: As above <Electronically signed by Reji Barnes > 02/07/21 [id number]
--- NOTE | 2021-02-07 13:14 | REP ---
INDICATION: Severe Abdominal pain with vaginal bleeding, hx C/S x3. COMPARISON: Comparison obstetric sonography December 17, 2020. TECHNIQUE: Portably obtained limited Ob sonography. Transabdominal. FINDINGS: Scanning through the gravid uterus demonstrates a viable single intrauterine gestation in transverse lie. motion is observed and heart rate is recorded at 158 beats per minute. A anterior placenta is seen, grade 1, without evidence of placenta previa. The maternal bladder and cervix could not be identified. There appears to be a defect in the midline in the lower uterine segment with intact amniotic sac and extremities protruding through the defect. Intact appearing myometrium is seen to the right and left of midline. The defect is approximately 4 cm. No extrauterine abnormality is observed. Amniotic fluid is subjectively normal. Biometry chart: BPD 7.7 cm, 31 weeks 0 days Head circumference 27.3 cm, 29 weeks 6 days Abdominal circumference 25.8 cm, 30 weeks 0 days Femur length 5.2 cm, cyst 27 weeks 5 days HC AC ratio normal 1.06 Cephalic index normal 0.80 Estimated weight 1369 g, 3 lb 0 oz, 64th percentile for 28 weeks 4 days IMPRESSION: Viable single intrauterine gestation at 29 weeks 4 days by today's composite sonographic criteria. DIANE by today's sonography 21 April 2021. No complication identified There is evidence of a defect in the lower uterine segment anteriorly in the midline with protruding amniotic sac and extremities.. Expected gestational age estimate based on 1st sonography 28 weeks 4 days, DIANE by for 1st sonography 04/28/2021. <Electronically signed by Jt Christy > 02/07/21 [id number]
--- NOTE | 2021-02-07 13:38 | POST-OPPD ---
Postoperative Procedure Note Date Of Procedure: Feb 07, 2021 DATE OF PROCEDURE: 02/07/21 PREPROCEDURE DIAGNOSES: uterine dehiscence POSTPROCEDURE DIAGNOSES: uterine dehiscence, status post emergent repeat low transverse delivery. PROCEDURE PERFORMED: emergent repeat low transverse delivery SURGEON: Angus Stevenson DO SENIOR PROCUREMENT SPECIALIST: Sebastian Obrien MD SENIOR PROCUREMENT SPECIALIST: Odilia Oconnell CNM ANESTHESIA: general. ESTIMATED BLOOD LOSS: Approximately 300 mL. COMPLICATIONS: none. FINDINGS: live male in breech position, apgars 5/8; SPECIMENS REMOVED: placenta, arterial and venous blood gases DESCRIPTION OF PROCEDURE: After obtaining informed consent, the patient was taken to the OR in emergent fashion due to heart rate deceleration to the 50's and sonographic evidence of uterine dehiscence. Once in the OR, the patient was placed under general anesthesia and the skin prepped with betadine splash. The surgical drapes were placed and an incision was made over the previous uterine scar and carried down through the fascia to the rectus muscles. These were in the midline and the amniotic sac was visible. The amniotic sac was ruptured with an Allis clamp and clear fluid was noted. The legs were delivered followed by the corpus and arms. The head was flexed and gently delivered. The cord was clamped and cut, the was handed to the NICU team. Arterial and venous blood gases were then obtained. The placenta was then delivered intact. The interior of the uterus was wiped with a laparotomy sponge. The uterine incision was closed with running locking 0-vicryl in one layer. Hemostasis was noted. The fascia was then approximated with 0-vicryl in a running fashion. The subcutaneous layer was irrigated and closed with 3-0 vicryl. 4-0 monocryl was used to close the skin. An Optifoam dressing was placed. The patient was awakened from anesthesia and taken to the recovery room in good condition. DO CONCHITA Hoffman BRADLEY J. DO Feb 07, 2021 13:38
[2021-02-07] MEDS ORDERED: SIMETHICONE 80MG CHEW TAB PO PRN (13:40)
[2021-02-07] MEDS ORDERED: RHOGAM 300 MCG (1500 IU) INJ (J2790) IM SCH (13:40)
[2021-02-07] MEDS ORDERED: METHYLERGONOVINE MALEATE 0.2 MG TAB PO PRN (13:40)
[2021-02-07] MEDS ORDERED: MEASLES,MUMPS,RUBELLA VACCINE INJ (MMR-II) (90707) SC SCH (13:40)
[2021-02-07] MEDS ORDERED: DOCUSATE SODIUM 100MG CAPSULE PO PRN (13:40)
[2021-02-07] MEDS ORDERED: OXYTOCIN DRIP 30 UNITS in IV 1 EA IV SCH ×4 (13:40)
[2021-02-07 13:45] LABS: GC DNA AMPLIFICATION NEGATIVE (NEGATIVE)
[2021-02-07] MEDS ORDERED: oxyCODONE 5MG TAB PO PRN ×2 (13:55→14:15)
[2021-02-07] MEDS ORDERED: ONDANSETRON 4MG/2ML VIAL IV PRN (13:55)
[2021-02-07] MEDS ORDERED: fentaNYL 100 MCG/2 ML INJECTION (J3010) IV PRN ×2 (13:55→14:15)
--- NOTE | 2021-02-07 14:07 | IPNPDOC ---
Text Note Date of Service The patient was seen on 02/07/21. NOTE Chief Complaint: Ms. Rodriguez is a 30 year old at 28+4 weeks gestation presenting to L&D triage by ambulance for complaints of pain since 0400 this am. Patient presents: with friend HPI: Reports low abdominal constant pain, feeling like "chainsaw" that changes to sharp pain when sitting up. Pain does not radiate anywhere. Pain started at 0400 this am and woke her from sleeping. Has not tried heat or tylenol for pain relief. Takes Suboxone, Prozac and PNV. Able to still drink water, last ate food last night. Emesis this am with pain. Denies dysuria, vaginal itching, burning, or changes in discharge. No recent intercourse. Denies vaginal bleeding. Thinks she may be [place]. Has decreased movement today. Denies LOF. ROS: GEN: Denies fevers, chills, or night sweats. Head: Denies Headaches, facial pain, or sinus pressure. Eyes: Denies change in vision/ scotomata/blurred vision. ENT: Denies sore throat. Resp: Denies SOB/BORGES, cough, or wheezing. Card: Denies palpitations or Chest pain. GI: Denies diarrhea, constipation, heartburn. Lymph: Reports edema to upper or lower extremities bilaterally. Started occurring at 18 weeks . Skin: Denies any skin changes. Reports scabs from frequent picking. ALLERGIES: NKeflex, Gabapentin, Codeine, Cipro, zolft Objective: VS: 109/55, P97, T98.1, POX 98% room air General: Alert. Well-appearing. Tearful and rocking with pain. PSYCH: Well groomed. Appropriate affect. Conversed easily. Neuro: Oriented to time, place, and person. RESP: Lungs clear to auscultation bilaterally without wheezes, rales or rhonchi. Unlabored breathing. CV: Normal RRR, no murmur, c/w normal . ABD: Soft. Tenderness diffusely to abdomen, more pain to lower right and left quadrants with most pain to lower left and low mid abdomen. Tenderness on rebound to lower right and left, but reports pain worse with direct palpation. BS normal and auscultated to upper quadrants. Minimal fundal tenderness noted on palpation. No swelling, guarding, mass or lumps noted on palpation. MSK: 1+ pitting edema lower extremities bilaterally up to shins. Non-pitting edema, mild to bilateral hands. Normal mvmt all extremities, however guarding with ambulation. Steady gait. Lila from a seated position with assistance due to pain. SKIN: Dry, with multiple and extensive healing in various stages scabs on bilateral upper and lower extremities. None noted on abdomen. Obstetrical: FHR: 135 with moderate variability and accelerations present 15x15. No decels noted. Minimal contracitons noted. No contractions palpated over 5 minutes. While patient up to bathroom to provide urine sample, nursing staff noted 8cm spot on underwear of bright red blood. Pelvic exam: External Genitalia showed no abnormalities, without lesions; normal vulva. Vagina: Noted pooling dark red blood est 5-10 min in posterior vaginal vault. Swabs for wet prep, GC/CT, GBS collected. Cervix appears 1cm dilated, no membranes visualized. No mehrdad bleeding noted. Minimal vaginal discharge was observed. Normal mucosa with good rugae. No ulcerations, masses, lesions or lacerations. No unusual odors. Patient with discomfort on speculum exam. SVE deferred at this time. Conditioning Room Worker present for exam: Kayy ALEJANDRE from L&D. Limited Trans-Abdominal Ultrasound Performed Today: Presentation: Breech with head to maternal left. Placenta location: anterior Movement Present Heart Rate Present Amniotic fluid: visually adequate. A/P: Ms. Rodriguez is a 30 year old at 28+4 weeks. Called to bedside initially due to difficulty of RN finding FHR at 1014. FHR noted by TAUS in RUQ due to breech presentation. Placenta was not evaluated on this US at this time. VSS and normal Wet prep with blood and minimal hyphe noted. No clue cells. IV LR bolus ordered. CBC, fibrinogen, PT/APTT, UA/UC, Genprobe/Trich, UDS, GBS, T&S, syphilis ordered. Physical exam significant for abdominal pain and vaginal bleeding. Upon discovery of the bleeding at 1050, stat bedside US ordered to evaluate placenta and incision site and being performed at 1115. Dr. Zaldivar notified of patient status at 1058. FHR continues to be reassuring during assessment. Nursing staff with difficulty obtaining IV access and labs to include abruption labs. Spec exam after initial US by radiology to assess location of bleeding and noted blood in vault, however membranes not visualized. Dr Ahuja at bedside at 1126. Reactive NST, reassuring. Report given to Dr. Ahuja for delivery plans. VS,Fishbone, I+O VS, Fishbone, I+O Laboratory Tests 02/07/21 11:46 Vital Signs Date Time Temp Pulse Resp B/P (MAP) Pulse Ox O2 Delivery O2 Flow Rate FiO2 02/07/21 10:19 98.1 97 18 109/55 (73) 98 Room Air DWAYNE SÁNCHEZ CNM Feb 07, 2021 13:49
[2021-02-07] MEDS: ONDANSETRON 4MG/2ML VIAL IV PRN ×2 (14:13→21:14)
--- NOTE | 2021-02-07 14:30 | HPEPDOC ---
Obstetrical History & Physical General Date of Admission Feb 07, 2021 at 12:20 History of Present Illness Mary Rodriguez is a 30yo presented at 28+4, please see triage note by AUBREE Oconnell for triage details. I was called by AUBREE Oconnell to evaluate for uterine rupture vs. abruption. Past Medical History Past Obstetrical History : Past Obstetrical History: Multigravida (3 deliveieries, history of GHTN) Past Medical History Medical History CHTN not on meds anxiety/depression Hx of drug use on suboxone obese exercise induced asthma chronic pain and neuropathy HepC history of Surgical History: Other ( delivery x3, laparoscopy for endometriosis x3, disc surgeries) Family History Significant Family History: Other (mother: thyroid, high blood pressure; father: heart problems, high blood pressure) Social History Social history kids are with CPS, this plans on adopting out * Smoker: non-smoker Alcohol: Denies Drugs: other (hx of drug abuse on suboxone) Abuse Violence Screening Have you been hit/kicked/slapp: No Have you been sexually assault: No Allergies Coded Allergies: gabapentin (Verified Allergy, Severe, hives, "throat closes:, 07/19/19) sertraline (Verified Allergy, Severe, difficulty breathing, 07/19/19) cephalexin (Verified Allergy, Intermediate, hives, 07/19/19) ciprofloxacin (Verified Allergy, Intermediate, hives, 07/19/19) codeine (Verified Allergy, Intermediate, PRURITIS, FLUSHED, unspecified SWELLING, 07/19/19) CAN TAKE OXYCODONE acetaminophen (Unverified Adverse Reaction, Unknown, CAN'T TAKE DUE TO HEPATITIS, 07/19/19) Medications Scheduled Buprenorphine HCl/Naloxone HCl (Suboxone 8 mg-2 mg Sl Film) 1 Each Film, 1 STRIP SL BID Fluoxetine HCl (Prozac) 20 Mg Capsule, 20 MG PO QAM Prenat 115/Iron Fum/Folic/Dss ( 19 Tablet) 1 Each Tablet, 1 TAB PO DAILY Physical Examination Physical Examination GENERAL: Alert and oriented times three. ABDOMEN: Gravid and tender diffusely with guarding/rebound FETUS: breech by ultrasound HEART RATE: Regular rate LUNGS: nonlabored breathing EXTREMITIES: 1+ edema. Vital Signs/I&O Vital Signs Date Time Temp Pulse Resp B/P (MAP) Pulse Ox O2 Delivery O2 Flow Rate FiO2 02/07/21 10:19 98.1 97 18 109/55 (73) 98 Room Air Laboratory Data 24H LABS Laboratory Tests 2 02/07/21 10:55: Urine Color GLO, Urine Appearance HAZY, Urine pH 6.0, Urine Specific [place] 1.021, Urine Protein 2+H, Urine Glucose (Auto)(UA) NEGATIVE, Urine Ketones (Auto) TRACEH, Urine Blood 3+H, Urine Nitrite NEGATIVE, Urine Bilirubin NEGATIVE, Urine Urobilinogen 4.0H, Urine Leukocyte Esterase (Auto) NEGATIVE, Urine WBC (Auto) 5H, Urine RBC (Auto) 20H, Urine Hyaline Casts (Auto) 0, Urine Bacteria (Auto) NEGATIVE, Urine Squamous Epithelial Cells 4, Urine Amorphous Sediment (Auto) SMALLH, Urine Mucus (Auto) SMALL, Urine Sperm (Auto) , Urine Opiates Screen NEGATIVE, Urine Methadone Screen NEGATIVE, Urine Barbiturates Screen NEGATIVE, Urine Phencyclidine Screen NEGATIVE, Urine Amphetamines Screen NEGATIVE, Urine Benzodiazepines Screen NEGATIVE, Urine Cocaine Metabolite Screen NEGATIVE, Urine Cannabinoids Screen PENDING CONFIRMATIONH, Chlamydia trachomatis DNA (WILLARD) NEGATIVE, Neisseria gonorrhoeae DNA (WILLARD) NEGATIVE, Trichomonas vaginalis (PCR) NOT DETECTED 02/07/21 11:46: Nucleated Red Blood Cells % (auto) 0.0, Prothrombin Time 13.1, Prothromb Time I nternational Ratio 0.96, Activated Partial Thromboplast Time 28.9, Fibrinogen 585H, Syphilis Serology NONREACTIVE 02/07/21 12:56: Cord Arterial Blood pH 7.282, Cord Arterial Blood PCO2 57.2, Cord Arterial Blood PO2 22.5, Cord Arterial Blood HCO3 26.4, Cord Arterial Blood Total CO2 28.2, Cord Arterial Blood Base Excess -1.5, Cord Arterial Base Excess (Standard 22.0, Cord Arterial Bld Oxygen Saturation 51.8, Cord Venous Blood pH 7.355, Cord Venous Blood PCO2 44.5, Cord Venous Blood PO2 43.5, Cord Venous Blood HCO3 24.3, Cord Venous Blood Total CO2 25.7, Cord Venous Base Excess (Actual) -1.5, Cord Venous Base Excess (Standard) 23.1, Cord Venous Blood Oxygen Saturation 89.9 CBC/BMP Laboratory Tests 02/07/21 11:46 Microbiology Microbiology 9/24/21 Group B Streptococcus Screen (MARIBEL), Received Pending 02/07/21 Urine Culture, Received Pending Pertinent Laboratoy Data Blood Type: A+ RBC Antibody Screen: Negative HIV: Negative Hepatitis B: Negative Hepatitis C: Positive (antibody positive PCR negative) Rapid Plasma Reagin: Nonreactive Rubella: Immune Varicella: Immune Chlamydia/Gonorrhea: Negative Group B Streptococcus: Unknown Anatomy Ultrasound Ultrasound Date: Dec 17, 2020 Placenta Location: Anterior Normal Anatomy: Yes Placenta Previa: No Estimated Weight (grams): 399 Vaginal Examination Dilation: 1cm Presentation: Breech presentation Assessment Heart Rate (FHR): 140 (appropriate for gestational age) Tocometer Contractions: No Multi-drug resistant Organism: No history of MDRO Assessment/Plan Assessment 30yo at 28+4 with uterine dehisence via ultrasound and decelration to the 50s, move to STAT after consent was obtained Plan to OR for STAT magensium and betamethasone ordered Labor and Delivery Counseling Counseled on risks of delivery including bleeding, infection, damage to nearby tissues/organs, maternal/ , reactions to anesthesia. Consent signed and in chart. LESVIA ARANGO DO Feb 07, 2021 14:27
[2021-02-07 15:59] LABS: GC DNA AMPLIFICATION NEGATIVE (NEGATIVE)
[2021-02-07] MEDS: PROMETHAZINE 25 MG TAB PO PRN (18:01)
[2021-02-07] MEDS: KETOROLAC 30 MG/ML 1ML VIAL IV SCH (18:01)
[2021-02-07] MEDS: LR 1,000 ML IV SCH ×2 (18:02→22:30)
[2021-02-07] MEDS: BUPRENORPHINE/NALOXONE 8-2MG SUBLINGUAL TABLET(SUBOXONE) SL SCH (18:24)
[2021-02-08] MEDS: KETOROLAC 30 MG/ML 1ML VIAL IV SCH ×2 (00:38→06:20)
[2021-02-08] MEDS: PROMETHAZINE 25 MG TAB PO PRN (00:39)
[2021-02-08 02:45] VITALS: BP 99/53
[2021-02-08] MEDS: FLUoxetine 20 MG CAP PO SCH (06:40)
[2021-02-08] MEDS: BUPRENORPHINE/NALOXONE 8-2MG SUBLINGUAL TABLET(SUBOXONE) SL SCH ×2 (06:41→17:41)
[2021-02-08] MEDS ORDERED: LR 500 ML IV ONE (06:55)
--- NOTE | 2021-02-08 07:00 | IPNPDOC ---
Progress Note Date of Service: Feb 08, 2021 Day#: 1 Progress Note SUBJECT: Mary Rodriguez is a 30-year-old 6 now Para 4024 status post uncomplicated emergent delivery at 28+4 weeks' at approximately 1230 hours on [id number] of a male 3 pounds 3 ounces. Doing well day # 1. She was seen in bed, she just had her parsons removed. Overnight her urine output has dropped and is most recently scant. She was recently given a 500mL bolus (0500 25SEP) which produced some urine. She is looking at the menu and ordering breakfast. She denies f/c/n/v/cp/sob. She has a history of drug abuse and is on suboxone. She has a history of hepatitis C with most recent testing negative. She has a history of chronic pain. OBJECTIVE: VITAL SIGNS: Within normal limits, afebrile. Alert and oriented times three. Breath sounds clear to auscultation. Heart rate: Regular rate and rhythm, no murmurs, rubs or gallops. Abdomen: Fundus firm at U-2. Soft, appropriately tender postoperatively. Incision covered with Optifoam with no strikethrough. +bowel sounds [Minimal] lochia. ASSESSMENT: Recovering well on post-operative day #1. Vitals within normal limits, afebrile, hemodynamically stable with no evidence of infection. Awaiting results of CBC and CMP. Low urine output currently watching to see if LR bolus increases this. PLAN: - this AM CBC and CMP pending - monitor urine output - social work consult has been placed - Likely discharge to home tomorrow - Tylenol and Motrin for pain. - Encourage ambulation. - desires salpingectomy. - Routine PP visit in 2 weeks for incision check and at 6 weeks in clinic. - Discussed return precautions at length. VS, I&O, 24H, Fishbone Vital Signs/I&O Vital Signs Date Time Temp Pulse Resp B/P (MAP) Pulse Ox O2 Delivery O2 Flow Rate FiO2 02/08/21 02:45 98.8 82 15 99/53 (68) 97 Room Air 02/07/21 14:39 10.0 I&O- Last 24 Hours up to 6 AM 02/08/21 06:00 Intake Total 5491 ml Output Total 1150 ml Balance 4341 ml Laboratory Data 24H LABS Laboratory Tests 2 02/07/21 10:55: Urine Color GLO, Urine Appearance HAZY, Urine pH 6.0, Urine Specific [place] 1.021, Urine Protein 2+H, Urine Glucose (Auto)(UA) NEGATIVE, Urine Ketones (Auto) TRACEH, Urine Blood 3+H, Urine Nitrite NEGATIVE, Urine Bilirubin NEGATIVE, Urine Urobilinogen 4.0H, Urine Leukocyte Esterase (Auto) NEGATIVE, Urine WBC (Auto) 5H, Urine RBC (Auto) 20H, Urine Hyaline Casts (Auto) 0, Urine Bacteria (Auto) NEGATIVE, Urine Squamous Epithelial Cells 4, Urine Amorphous Sediment (Auto) SMALLH, Urine Mucus (Auto) SMALL, Urine Sperm (Auto) , Urine Opiates Screen NEGATIVE, Urine Methadone Screen NEGATIVE, Urine Barbiturates Screen NEGATIVE, Urine Phencyclidine Screen NEGATIVE, Urine Amphetamines Screen NEGATIVE, Urine Benzodiazepines Screen NEGATIVE, Urine Cocaine Metabolite Screen NEGATIVE, Urine Cannabinoids Screen PENDING CONFIRMATIONH, Chlamydia trachomatis DNA (WILLARD) NEGATIVE, Neisseria gonorrhoeae DNA (WILLARD) NEGATIVE, Trichomonas vaginalis (PCR) NOT DETECTED 02/07/21 11:46: Nucleated Red Blood Cells % (auto) 0.0, Prothrombin Time 13.1, Prothromb Time International Ratio 0.96, Activated Partial Thromboplast Time 28.9, Fibrinogen 585H, Syphilis Serology NONREACTIVE 02/07/21 12:56: Cord Arterial Blood pH 7.282, Cord Arterial Blood PCO2 57.2, Cord Arterial Blood PO2 22.5, Cord Arterial Blood HCO3 26.4, Cord Arterial Blood Total CO2 28.2, Cord Arterial Blood Base Excess -1.5, Cord Arterial Base Excess (Standard 22.0, Cord Arterial Bld Oxygen Saturation 51.8, Cord Venous Blood pH 7.355, Cord Venous Blood PCO2 44.5, Cord Venous Blood PO2 43.5, Cord Venous Blood HCO3 24.3, Cord Venous Blood Total CO2 25.7, Cord Venous Base Excess (Actual) -1.5, Cord Venous Base Excess (Standard) 23.1, Cord Venous Blood Oxygen Saturation 89.9 02/07/21 13:53: Chlamydia trachomatis DNA (WILLARD) NEGATIVE, Neisseria gonorrhoeae DNA (WILLARD) NEGATIVE, Trichomonas vaginalis (PCR) NOT DETECTED 02/07/21 15:00: Serology Scanned Report Hepatitis B Testing CBC/BMP Laboratory Tests 02/07/21 11:46 Microbiology Microbiology 02/07/21 Group B Streptococcus Screen (MARIBEL), Received Pending 02/07/21 Urine Culture, Received Pending LESVIA ARANGO DO Feb 08, 2021 06:39
[2021-02-08 07:15] LABS: HEMATOCRIT 24.4 % (36.0-47.0); MEAN CORPUSCULAR HEMOGLOBIN 27.1 pg (27.0-33.0); MEAN CORPUSCULAR VOLUME 84.7 fl (80.0-96.0); PLATELET COUNT, AUTOMATED 225 10^3/uL (150-450); RED BLOOD COUNT 2.88 10^6/uL (4.00-5.40); WHITE BLOOD COUNT 6.7 10^3/uL (4.0-10.0)
[2021-02-08 07:18] LABS: HEMOGLOBIN 7.8 g/dl (12.0-15.5)
[2021-02-08 07:41] LABS: ALBUMIN 1.4 GM/DL (3.2-5.2); ALT/SGPT 11 U/L (12-78); BILIRUBIN,TOTAL 0.1 MG/DL (0.2-1.0); BLOOD UREA NITROGEN 5 MG/DL (7-18); CALCIUM LEVEL 7.8 MG/DL (8.5-10.1); CARBON DIOXIDE LEVEL 26 MEQ/L (21-32); CHLORIDE LEVEL 111 MEQ/L (98-107); CREATININE FOR GFR 0.41 MG/DL (0.55-1.30); GLOMERULAR FILTRATION RATE > 60.0 (>60); GLUCOSE, FASTING 69 MG/DL (70-100); POTASSIUM SERUM 4.1 MEQ/L (3.5-5.1); SODIUM LEVEL 141 MEQ/L (136-145)
[2021-02-08] MEDS: LR 1,000 ML IV SCH (07:49)
[2021-02-08] MEDS: PRENATAL VITAMINS CHEWABLE TABLET PO SCH (09:00)
[2021-02-08] MEDS ORDERED: PRENATAL VITAMINS CHEWABLE TABLET PO SCH (09:00)
[2021-02-08 10:24] VITALS: BP 91/52
[2021-02-08 13:10] VITALS: BP 105/55
[2021-02-08] MEDS ORDERED: ACETAMINOPHEN 500 MG TAB PO PRN (13:40)
[2021-02-08] MEDS ORDERED: NALOXONE INJ 0.4MG/1ML VIAL (J2310 PER 1MG) IV STA (13:40)
[2021-02-08] MEDS: oxyCODONE 5MG TAB PO PRN ×3 (14:09→22:46)
[2021-02-08] MEDS: IBUPROFEN 800 MG TAB PO SCH ×2 (15:00→22:46)
[2021-02-08 15:48] LABS: HEMOGLOBIN 8.8 g/dl (12.0-15.5); MEAN CORPUSCULAR HEMOGLOBIN 27.1 pg (27.0-33.0); MEAN CORPUSCULAR HGB CONC 31.4 g/dl (32.0-36.5); MEAN CORPUSCULAR VOLUME 86.2 fl (80.0-96.0); PLATELET COUNT, AUTOMATED 294 10^3/uL (150-450); RED BLOOD COUNT 3.25 10^6/uL (4.00-5.40); WHITE BLOOD COUNT 7.5 10^3/uL (4.0-10.0)
[2021-02-08 18:00] VITALS: BP 111/66
[2021-02-08] MEDS ORDERED: SLF 3 ML SYR IV PRN (18:00)
[2021-02-08 22:00] VITALS: BP 113/57
[2021-02-08] MEDS: SLF 3 ML SYR IV SCH (22:00)
[2021-02-09 02:00] VITALS: BP 110/55
[2021-02-09] MEDS: oxyCODONE 5MG TAB PO PRN (02:47)
[2021-02-09 06:00] VITALS: BP 143/85
[2021-02-09] MEDS: BUPRENORPHINE/NALOXONE 8-2MG SUBLINGUAL TABLET(SUBOXONE) SL SCH (06:39)
[2021-02-09] MEDS: IBUPROFEN 800 MG TAB PO SCH (06:39)
[2021-02-09] MEDS: FLUoxetine 20 MG CAP PO SCH (06:39)
[2021-02-09] MEDS: SLF 3 ML SYR IV SCH (06:40)
[2021-02-09] MEDS: PRENATAL VITAMINS CHEWABLE TABLET PO SCH (09:00)
[2021-02-09 10:00] VITALS: BP 126/64
--- NOTE | 2021-02-09 10:12 | OBDS ---
[facility] Obstetrical Discharge Sum. A/P, Post Course List any complications Admission diagnosis: Uterine rupture at 28 weeks, chronic pain on subxone, opaite dependence Discharge diagnosis: s/p emergent CD, UTERINE RUTURE, OPAITE DEPENDECE, CHRONIC PAIN Condition at Discharge: STABLE Discharge Instructions: Home Activity: PELVIC REST Diet: REGULAR Medications: SUBOXONE 8/2MG bid, oxycodone 5mg q4-6hrs for 5 days, motrin 800mg q8hrs, tylenol 1000mg 8hrs Follow-up: 2 weeks, 6 weeks Other: Mary Rodriguez is a 30-year-old 6 now Para 4024 POD2 status post uncomplicated emergent delivery at 28+4 weeks' at approximately 1230 hours on [id number] of a male 3 pounds 3 ounces. Doing well day # 2. her POD1 has remained stable, denies any heahdaches, SOB, CP. she is not ambulating to the bathroom without issues and voiding without issues. she has good urinary output. she is now c/p right hip pain, which she reports she had prior to surgery. she reports pain is only coming down to 5/10 And she is not moving as much due to that. she wants to be discharged today so she can go see her baby in [place]. She has a history of drug abuse and is on suboxone. She has a history of hepatitis C with most recent testing negative. She has a history of chronic pain. OBJECTIVE: VITAL SIGNS: Within normal limits, afebrile. Alert and oriented times three. NORMAL WORK OF BREATHING Heart rate: Regular rate and rhythm, Abdomen: Fundus firm at U-2. Soft, appropriately tender postoperatively. Incision covered with Optifoam with no strikethrough. ASSESSMENT: Recovering well on post-operative day #2. Vitals within normal limits, afebrile, hemodynamically stable with no evidence of infection. Meeting discharge criteria CHERIE PRATT MD Feb 09, 2021 10:12
[2021-02-09] MEDS ORDERED: ACET-683 PO (10:15)
[2021-02-09] MEDS ORDERED: IBUP80TA PO (10:15)
[2021-02-09] MEDS ORDERED: medroxyPROGESTERone ACET IM SUSP 150 MG/ML VIAL (J1050) IM ONE (10:15)
[2021-02-09] MEDS ORDERED: oxyCODONE 5MG TAB PO ONE (10:45)
== END 2021-02-09 14:00 | disposition home or self-care (01) | DRG 772 ==
LOC: M LDO 10:05 → M LDI 12:20 → M OBS 15:15
PROVIDERS: ADMIT Advanced Practice Midwife; ATTEND Advanced Practice Midwife
PROC: 10D00Z1 Extraction of Products of Conception, Low, Open Approach (ICD-10-PCS; principal; 2021-02-07 12:56)
DX: O71.03 Rupture of uterus before onset of labor, third trimester (principal); O10.02 Pre-existing essential hypertension complicating childbirth; O34.211 Maternal care for low transverse scar from previous cesarean delivery; Z3A.28 28 weeks gestation of pregnancy; Z37.0 Single live birth; O32.1XX0 Maternal care for breech presentation, not applicable or unspecified; O99.214 Obesity complicating childbirth; E66.9 Obesity, unspecified